=== PATIENT | female | born 1995 ===

== ENCOUNTER 2023-11-20 02:35 | Inpatient (IN) | payer BC ==
[2023-11-20] MEDS ORDERED: Misoprostol 400 MCG (4 X 100 MCG TAB) RECTAL PRN ×2 (03:08→16:22)
[2023-11-20] MEDS ORDERED: Sodium Chloride 0.9% 10 ML Syringe FLUSH PRN (03:08)
[2023-11-20] MEDS ORDERED: Acetaminophen 325 MG Tab PO PRN ×2 (03:08→16:22)
[2023-11-20] MEDS ORDERED: Carboprost Tromethamine 250 MCG/1 ML Amp IM PRN ×2 (03:08→16:22)
[2023-11-20] MEDS ORDERED: Methylergonovine 0.2 MG/1 ML Amp IM PRN (03:08)
[2023-11-20] MEDS ORDERED: Ondansetron 4 MG/2 ML SDV IVPUSH PRN (03:08)
[2023-11-20] MEDS ORDERED: Tranexamic Acid 1,000 MG in Sodium Chloride 0.9% 100 ML IV PRN ×2 (03:08→16:22)
[2023-11-20 03:34] LABS: HEMATOCRIT 40.1 % (37.0-47.0); HEMOGLOBIN 12.9 g/dL (12.0-16.0); MEAN CORPUSCULAR HGB CONC 32.2 g/dL (33.0-35.0); RED BLOOD CELL COUNT 4.61 10^6/uL (4.2-5.4); WHITE BLOOD CELL COUNT,WBC 13.6 10^3/uL (5.0-10.0)
[2023-11-20] MEDS ORDERED: hydrOXYzine HCl 25 MG Tab PO PRN (03:35)
[2023-11-20] MEDS ORDERED: Oxytocin/Normal Saline 30 UNIT/500 ML BAG IV SCH (09:45)
[2023-11-20] MEDS: fentaNYL 100 MCG/2 ML SDV IVPUSH PRN (11:24)
[2023-11-20] MEDS: Lactated Ringers 1,000 ML IV SCH (14:05)
[2023-11-20] MEDS: Oxytocin/Normal Saline 30 UNIT/500 ML BAG IV SCH (14:05)
[2023-11-20] MEDS: Lidocaine 1% 30 ML SDV INJECT ONE (15:55)
[2023-11-20] MEDS ORDERED: Simethicone 80 MG Tab.Chew PO PRN (16:22)
[2023-11-20] MEDS: Ibuprofen 800 MG Tab PO SCH (17:57)
[2023-11-20] MEDS: Benzocaine/Menthol 20%-0.5% Spray 78 GM Cannister TOP PRN (17:58)
[2023-11-20] MEDS: Docusate Sodium 100 MG Cap PO PRN (17:58)
[2023-11-20] MEDS: Witch Hazel Medicated Pads 100/Jar TOP PRN (17:58)
[2023-11-20] MEDS: Lactated Ringers 1,000 ML IV ONE (18:12)
[2023-11-21] MEDS: Ibuprofen 800 MG Tab PO SCH (02:37)
[2023-11-21] MEDS: Lidocaine 1% 30 ML SDV ONE (07:18)
[2023-11-21] MEDS: Prenatal Multivitamin with Calcium/Folic Acid/Iron Tab PO SCH (09:09)
== END 2023-11-21 17:20 | disposition home or self-care (01) | DRG 560 ==
LOC: DL.OBCHECK 02:35 → DL.OB 03:08 → INTOOBSV 03:08 → DL.OB 03:11 → UNDOADMIN 03:11 → OBSVTOIN 15:42
PROVIDERS: ADMIT Family Medicine; ATTEND Family Medicine
PROC: 10E0XZZ Delivery of Products of Conception, External Approach (ICD-10-PCS; principal; 2023-11-20)
PROC: 0KQM0ZZ Repair Perineum Muscle, Open Approach (ICD-10-PCS; 2023-11-20)
DX: O99.214 Obesity complicating childbirth (principal); O99.814 Abnormal glucose complicating childbirth; Z37.0 Single live birth; O70.1 Second degree perineal laceration during delivery; O99.52 Diseases of the respiratory system complicating childbirth; J45.990 Exercise induced bronchospasm; Z3A.39 39 weeks gestation of pregnancy; Z87.81 Personal history of (healed) traumatic fracture
CPT/HCPCS: 36415; 59409; 85027; A9270-GY; J2590; J3010; J3490; J7120